=== PATIENT | male | born 1955 | race Caucasian/White ===

== ENCOUNTER → 2017-09-21 | Outpatient (CLI) | payer MEDICARE, OTHER ==
[~2017-09-21] MED LIST: AMOX-362 PO; ATOR20TA65 PO; CYCL10TA29 PO; GABA-549 PO; GOLYTE PO; HYDR-317 PO; HYOS0.1225 PO; LACT1CAP13 PO; LISI-353 PO; LISI-362 PO; LISI2.5T60 PO; LISI20TA29 PO; METF-410 PO; ORP100 PO; OXYC-373 PO; PRED20TA6 PO; TAMS0.4C70 PO; TRAM-420 PO; [UNRECOGNIZED DRUG - CODE] TP
--- NOTE | 2017-09-21 15:52 | EKG ---
[place] [facility] [place] JONA GARZA : [id number] MR: [id number] V: [id number] EXAM DATE: ORDERING PHYSICIAN: KRYSTEN MARTINES TECHNOLOGIST: ALVA Test Reason : CHEST TIGHTNESS Blood Pressure : / mmHG Vent. Rate : 074 BPM Atrial Rate : 074 BPM P-R Int : 150 ms QRS Dur : 112 ms QT Int : 380 ms P-R-T Axes : 045 -65 -24 degrees QTc Int : 421 ms Normal sinus rhythm Left anterior fascicular block Nonspecific ST and T wave abnormality Abnormal ECG Referred By: DELL BERGMAN Confirmed By:
== END ==
LOC: LAB 09:52
PROVIDERS: ATTEND Nurse Practitioner Family
DX: I44.4 Left anterior fascicular block (principal); R94.31 Abnormal electrocardiogram [ECG] [EKG]; R10.13 Epigastric pain
CPT/HCPCS: 36415; 84484; 93005

== ENCOUNTER 2017-10-31 13:00 | Outpatient (RCR) | payer MEDICARE, OTHER ==
--- NOTE | 2017-08-08 16:43 | PT INITIAL EVALUATION ---
MEDICAL DIAGNOSIS: L knee TKA TREATMENT DIAGNOSIS: same, altered gait DATE OF ONSET: 07/25/17 SUBJECTIVE: Jose Vences presents to physical therapy status post L TKA on June. He reports that the mague were removed a few days ago. He denies any chills, fever, increased redness, or any symptoms relating to infection. He states that he has been using heat and states that it feels better than ice at this point. He states that he has been performing heel slides, quad sets, SLR, and hip abduction. He rates the pain to be 5-6/10 with normal daily functions. He rates the pain to be 7/10 with walking and up/ down stairs. Pain location is L knee joints surrounding joint lines, posterior capsule and described as achy. REHAB PROBLEM LIST: Increased Pain Decreased ROM Decreased Strength Decreased Endurance Decreased Balance Decreased Function Decreased ADL's Decreased Mobility Decreased Gait PREVIOUS MEDICAL HISTORY: See EMR OCCUPATION: Retired OBJECTIVE: ROM: L knee PROM: 5-0-90 degrees. L knee AROM: 10-0-90 degrees. Strength: 10 degrees of L knee quad lag Palpation: TTP: L knee joint lines and posterior capsule. Special Tests: FOTO KNEE: 60% impairment, patellar mobility: moderate restriction superiorly and inferiorly. minimal restriction medially and laterally. Mobility: Modified independent Gait: With AD, he demonstrated the following gait mechanics: decreased R step length, increased base of support, decreased velocity, no LOB, and decreased single stance. ASSESSMENT: He will benefit from skilled physical therapy addressing the listed impairments to improve function and QOL. Short Term Goals 3 weeks: Pt will improve AROM of L knee extension and flexion from baseline to 0-125 degrees to improve function and QOL. 3 weeks: Pt will improve quadricep lag from baseline to 0 degrees to improve function and QOL. 6 weeks: Pt will improve gait mechanics from baseline to normal gait mechanics to improve function and QOL. Patient's Goals improve walking, decrease pain, and return to normal daily functions PLAN: Patient to be seen for Manual Therapy/STM/MET Strengthening/condition Ice/Heat Range of Motion Spinal Stabilization Work Hardening/Cond Stretching Neuromuscular Re-ed Closed Chain Program Electrical Stim Gait Trg/Balance Trg Home Exercise Program Therapeutic Activities 3x/Week for 6 Weeks If you have any questions, comments, or concerns about this report or plan, please contact me at . Thank you, Rodrigo Mclean, PT, DPT MTDD
--- NOTE | 2017-09-07 13:19 | PT PLAN OF CARE ---
Physician: Ang Arredondo MD Patient is being seen: 2-3x/week Therapist: Rodrigo Mclean, PT, DPT Medical Diagnosis: L knee TKA Treatment Diagnosis: same, altered gait Date of Onset: 07/25/17 Date of Initial Evaluation: 08/07/17 Date patient was last seen: 09/06/17 Number of treatments: 10 Number of cancellations/No shows: 1 INTERVENTIONS: Manual Therapy/STM/MET Strengthening/condition Ice/Heat Range of Motion Spinal Stabilization Work Hardening/Cond Stretching Neuromuscular Re-ed Closed Chain Program Electrical Stim Gait Trg/Balance Trg Home Exercise Program Therapeutic Activities GOALS: 3 weeks: Pt will improve AROM of L knee extension and flexion from baseline to 0-125 degrees to improve function and QOL. MET 3 weeks: Pt will improve quadricep lag from baseline to 0 degrees to improve function and QOL. MET 6 weeks: Pt will improve gait mechanics from baseline to normal gait mechanics to improve function and QOL. Improving PATIENT'S GOAL: improve walking, decrease pain, and return to normal daily functions: progressing Status of Patient's Goals: Progressing well Patient Compliance: Good Prognosis: Excellent Reasons for continuing therapy: This is a progress note for Jose Vences. He reports that he is doing well. He states that he continues to perform his HEP without any difficult. He states that he no longer has pain and states that it feels more like stiffness. He states that he continues to have swelling around the IT band. He states that he feels like he is recovering well. He is progressing well with the following improvements: maintaining -3-0-130 degrees, increased quad contraction, improved gait mechanics, decreased swelling (however , he continues to have minimal swelling around ITB insertion), improved accessory patella mobility, and improved accessory incisional mobility. We will continue to maintain AROM, improve B LE/core strength, decrease swelling, and return to prior level of function. Posture: ROM: L knee PROM: -3-0-130 degrees. L knee AROM: -1-0-130 degrees. Strength: 0 degrees of L knee quad lag Palpation: TTP: L knee joint lines and posterior capsule. Special Tests: FOTO KNEE: 30% impairment, patellar mobility: minimal restriction superiorly and inferiorly. no restriction medially and laterally. Mobility: Independent If you have questions, please contact me at [phone]. Thank you, Rodrigo Mclean, PT, DPT MTDD
--- NOTE | 2017-10-24 16:05 | PT PLAN OF CARE ---
Physician: Ang Arredondo MD Patient is being seen: 2x/week Therapist: Rodrigo Mclean, PT, DPT Medical Diagnosis: L knee TKA Treatment Diagnosis: same, altered gait Date of Onset: 07/25/17 Date of Initial Evaluation: 08/07/17 Date patient was last seen: 10/24/17 Number of treatments: 20 Number of cancellations/No shows: 2 INTERVENTIONS: Manual Therapy/STM/MET Strengthening/condition Ice/Heat Range of Motion Spinal Stabilization Work Hardening/Cond Stretching Neuromuscular Re-ed Closed Chain Program Electrical Stim Gait Trg/Balance Trg Home Exercise Program Therapeutic Activities GOALS: 3 weeks: Pt will improve AROM of L knee extension and flexion from baseline to 0-125 degrees to improve function and QOL. MET 3 weeks: Pt will improve quadricep lag from baseline to 0 degrees to improve function and QOL. MET 6 weeks: Pt will improve gait mechanics from baseline to normal gait mechanics to improve function and QOL. MET 8 weeks: Pt will improve B LE strength from baseline to greater than 4+/5 to improve function and QOL. Progressing well. PATIENT'S GOAL: improve walking, decrease pain, and return to normal daily functions: progressing Status of Patient's Goals: Progressing well Patient Compliance: Good Prognosis: Excellent Reasons for continuing therapy: This is a progress note for Jose Vences. Pt reports no pain at rest but that the IT band is occasionally flared up. Pt quad strength is about 70% of the contralateral limb. Pt greatest deficit is eccentric control with lowering down stairs or walking downhill from his house. We will continue to work on his eccentric control with lowering and return him to prior level of function. ROM: L knee PROM: -3-0-130 degrees. L knee AROM: -1-0-130 degrees. Strength: 0 degrees of L knee quad lag Palpation: TTP: L knee joint lines and posterior capsule. Special Tests: FOTO KNEE: 6% impairment, patellar mobility:NIL superiorly and inferiorly. NIL medially or laterally. Mobility: Independent If you have questions, please contact me at [phone]. Thank you, Rodrigo Mclean, PT, DPT [facility]
[~2017-10-31 13:00] MED LIST changes: +AMLO-96 PO
--- NOTE | 2017-11-02 15:20 | PT PLAN OF CARE ---
Physician: Ang Arredondo MD Patient is being seen: 2x/week Therapist: Rodrigo Mclean, PT, DPT Medical Diagnosis: L knee TKA Treatment Diagnosis: same, altered gait Date of Onset: 07/25/17 Date of Initial Evaluation: 08/07/17 Date patient was last seen: 11/02/17 Number of treatments: 23 Number of cancellations: 2 INTERVENTIONS: Manual Therapy/STM/MET Strengthening/condition Ice/Heat Range of Motion Spinal Stabilization Work Hardening/Cond Stretching Neuromuscular Re-ed Closed Chain Program Electrical Stim Gait Trg/Balance Trg Home Exercise Program Therapeutic Activities GOALS: 3 weeks: Pt will improve AROM of L knee extension and flexion from baseline to 0-125 degrees to improve function and QOL. MET 3 weeks: Pt will improve quadricep lag from baseline to 0 degrees to improve function and QOL. MET 6 weeks: Pt will improve gait mechanics from baseline to normal gait mechanics to improve function and QOL. MET 8 weeks: Pt will improve B LE strength from baseline to greater than 4+/5 to improve function and QOL. MET PATIENT'S GOAL: improve walking, decrease pain, and return to normal daily functions: Progressing well Status of Patient's Goals: Progressing well Patient Compliance: Good Prognosis: Excellent Reasons for continuing therapy: This is a discharge note for Jose Vences. He reports that he is doing well. He denies any L knee pain. He states that he has some swelling around IT band insertion, but denies any pain even with palpation. He reports that he is performing his home exercise program without any difficulties. He has progressed well within PT while achieving the following improvements: normal accessory mobility of patella (inferior, superior , medial, and lateral), maintained AROM of L knee extension to flexion (0-125 degrees), increased quadricep strength, increased core and L LE strength, improved gait mechanics, and independent on his home exercise program. Furthermore, he continues to struggle with eccentric quad motions, however, with his home exercise program, it will continue to improve and he will be able to reach his full potential. He has met all of his goals. As a result, he will be discharged from formal PT to [facility]. ROM: L knee PROM: -3-0-130 degrees. L knee AROM: -2-0-125 degrees. Strength: 0 degrees of L knee quad lag Palpation: TTP: L knee joint lines and posterior capsule. Special Tests: FOTO KNEE: 6% impairment, patellar mobility:NIL superiorly and inferiorly. NIL medially or laterally. Mobility: Independent If you have questions, please contact me at [phone]. Thank you, Rodrigo Mclean, PT, DPT <Electronically signed by RODRIGO MCLEAN> D/ 1605 MTDD
[2017-11-02] MEDS ORDERED: AMLO-96 PO (16:41)
== END 2017-10-31 18:00 | disposition home or self-care (01) ==
LOC: PT 13:00
PROVIDERS: ATTEND Orthopaedic Surgery
DX: Z47.1 Aftercare following joint replacement surgery (principal); Z96.652 Presence of left artificial knee joint
CPT/HCPCS: 97010; 97110; 97140; 97161; G0283

== ENCOUNTER → 2018-04-05 | Outpatient (CLI) | payer MEDICARE, OTHER ==
[~2018-04-05] MED LIST changes: -METF-410 PO; +METF-411 PO
[2018-04-05 10:05] LABS: PLATELET COUNT, AUTOMATED 216 K/uL (150-450)
[2018-04-05 10:22] LABS: LDL CHOLESTEROL 76 mg/dl
== END ==
LOC: LAB 09:43
PROVIDERS: ATTEND Nurse Practitioner Family
DX: Z12.5 Encounter for screening for malignant neoplasm of prostate (principal); G62.9 Polyneuropathy, unspecified; E11.42 Type 2 diabetes mellitus with diabetic polyneuropathy; I10 Essential (primary) hypertension
CPT/HCPCS: 36415; 83036; 85025; G0103; 82040; 82247; 82310; 82374; 82435; 82465; 82565; 82947; 83718; 84075; 84132; 84153; 84155; 84295; 84450; 84460; 84478; 84520

== ENCOUNTER → 2018-05-14 | Outpatient (CLI) | payer MEDICARE, OTHER ==
[~2018-05-14] MED LIST changes: +PNEI IM
--- NOTE | 2018-05-14 11:00 | RADIOLOGY IMAGING REPORT ---
[facility] PATIENT NAME: Jose Vences : 1955 MR: [id number] V: [id number] EXAM DATE: ORDERING PHYSICIAN: GABRIELLA LUNDBERG TECHNOLOGIST: Location: [facility] [place] Patient: Jose Vences : 1955 Visit/Account:[id number] Date of Sevice: 05/14/2018 PELVIS W/O CONTRAST Provided history: R groin bulge, History of hernia repair x15 years ago Additional pertinent history: none TECHNIQUE: Spiral scan was obtained from the lower abdomen through the ischial tuberosities without i ntravenous contrast. Additional series performed today:none One of the following dose optimization techniques was utilized in the performance of this exam: Autom ated exposure control; adjustment of the mA and/or kV according to the patient's size; or use of an i terative reconstruction technique. Specific details can be referenced in the facility's radiology CT exam operational policy. COMPARISON STUDIES: Previous MRI lumbar spine 09/01/14 is off-line. Report only available. Previous p elvic ultrasound 04/01/14 is off-line. Report only available. FINDINGS: Genitourinary: Previous TURP defect noted. Mild diffuse bladder wall thickening. Small superior bladder dome diverticulum probably urate: Origin . No definable soft tissue mass. No filling defects in the bladder. Bowel/peritoneum/mesenteries: Negative Vessels: negative Body wall: Negative. No recurrent hernia evident. 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 Lower lumbar fusion noted. N o lytic or blastic bone lesion. Benign subcortical cyst upper left femoral neck. IMPRESSION: Chronic and postsurgical changes are defined above. No evidence of body wall hernia. Report Dictated By: Ang Crabtree MD at 05/14/2018 10:50 AM Report E-Signed By: Ang Crabtree MD at 05/14/2018 10:55 AM WSN:[id number]
== END ==
LOC: RAD 09:47
PROVIDERS: ATTEND Surgery
DX: Q76.49 Other congenital malformations of spine, not associated with scoliosis (principal); Z98.890 Other specified postprocedural states
CPT/HCPCS: 72192

== ENCOUNTER 2018-07-19 01:23 | Day surgery (SDC) | payer MEDICARE, OTHER ==
[~2018-07-19] VITALS: Ht 177.8 cm; Wt 91.6 kg
[~2018-07-19 01:23] MED LIST changes: +AMLO-111 PO; -AMLO-96 PO; +ASPI-757 PO; -METF-411 PO; +METF-450 PO
[2018-07-19] MEDS ORDERED: NORMOSOL R SOLN(*) 1000 ML BAG 1,000 ML IV PRN (06:45)
[2018-07-19] MEDS ORDERED: LIDOCAINE/SOD BICARB 8.4% SYR ID ONE (06:45)
[2018-07-19] MEDS ORDERED: ceFAZolin(*) 2GM/D5W 50ML 50 ML IVPB ONE (06:45)
[2018-07-19] MEDS ORDERED: FAMOTIDINE 20 MG TAB PO ONE (06:45)
[2018-07-19] MEDS ORDERED: MIDAZOLAM 2 MG/2 ML VIAL IVP PRN (06:45)
[2018-07-19 07:01] VITALS: BP 121/84
[2018-07-19] MEDS ORDERED: fentaNYL CITR 250 MCG/5 ML AMP ONE (07:05)
[2018-07-19] MEDS ORDERED: DEXAMETHASONE SOD 4 MG/ML VIAL ONE (07:06)
[2018-07-19] MEDS ORDERED: ONDANSETRON 4 MG/2 ML VIAL ONE (07:06)
[2018-07-19] MEDS ORDERED: LIDOCAINE MPF 1% 5 ML VIAL ONE (07:06)
[2018-07-19] MEDS ORDERED: PROPOFOL EMUL(*) 10MG/ML 20 ML 20 ML ONE (07:06)
[2018-07-19] MEDS ORDERED: ROPIVACAINE 0.5% 20 ML VIAL ONE (07:07)
[2018-07-19] MEDS ORDERED: KETAMINE HCL 200 MG/20 ML MDV ONE (07:12)
[2018-07-19] MEDS ORDERED: KETOROLAC 30 MG/ML VIAL ONE (07:54)
[2018-07-19] MEDS ORDERED: OXYC-373 PO (08:28)
[2018-07-19] MEDS ORDERED: DOCU-416 PO (08:28)
--- NOTE | 2018-07-19 08:34 | Short(Outpt) Discharge Summary ---
Discharge Summary Reason for Hosp/Final Diag: (1) Right groin mass Status: Chronic Hospital Course & Plan: Right groin lipoma removed without problems. Pt tolerated the procedure without issues. Departure Discharge to: Home, Self Care Discharge Instructions Home Meds Active Scripts Docusate Sodium (COLACE) 100 Mg Capsule, 1 CAP PO BID, #30 CAP 0 Refills TAKE WITH A FULL GLASS OF WATER Prov:GABRIELLA LUNDBEGR MD 07/19/18 Oxycodone Hcl/Acetaminophen (OXYCODONE-ACETAMINOPHEN 5-325) 1 Each Tablet, 1 TAB PO Q6H PRN for PAIN, #30 TAB 0 Refills Prov:GABRIELLA LUNDBERG MD 07/19/18 Lisinopril (LISINOPRIL) 20 Mg Tablet, 1 TAB PO QDAY, #90 TAB 2 Refills Prov:DELL CORTES APRN-C 06/26/18 Tramadol Hcl (TRAMADOL HCL) 50 Mg Tablet, 1 TAB PO Q6H PRN for PAIN, #360 TAB 1 Refill Prov:DELL CORTES APRN-C 05/07/18 Amlodipine Besylate (AMLODIPINE BESYLATE) 5 Mg Tablet, 1 TAB PO DAILY, #90 TAB 2 Refills Prov:DELL CORTES APRN-C 11/02/17 Orphenadrine Citrate (ORPHENADRINE CITRATE) 100 Mg Tabsr, 1 TAB PO DAILY PRN for MUSCLE SPASMS, #30 TAB 3 Refills Prov:DELL CORTES APRNP-C 03/20/17 Reported Medications Aspirin (ASPIRIN) 325 Mg Tablet, 1 TAB PO QDAY, TAB 06/15/18 Follow up Referrals: General Surgery - 08/07/18 @ Surgery, General with GABRIELLA LUNDBERG MD You have a follow up appointment scheduled with Dr. Lundberg on 08/07/18, at 3:00pm. Diet: Regular Activity: As Tolerated Special Instructions: You may remove the white surgical dressing on 07/21/18, then you can shower. After showering, leave the incision open to air but leave the steristrip in place until they fall off on their own. Do not immerse the incision for 2 weeks. GABRIELLA LUNDBERG MD Jul 19, 2018 08:34
--- NOTE | 2018-07-19 08:38 | Post Operative Progress Note ---
Post Operative Progress Note Date: Jul 19, 2018 Time: 08:35 Surgeon: Star Dictation number: [id number] Anesthesia: LMA by Dr. Gutiérrez Pre-Op Diagnosis: Painful right groin mass Post-Op Diagnosis: JESSE Findings: C/W benign lipoma Procedure(s): Excision of right groin mass Specimen Removed:(May be N/A): Right groin mass Complications: None Fluids: See anesthesia record Estimated Blood Loss: Minimal Date OP Note Dictated: Jul 19, 2018 Time OP Note Dictated: 08:36 GABRIELLA LUNDBERG MD Jul 19, 2018 08:38
[2018-07-19 09:14] VITALS: BP 118/78
[2018-07-19 09:30] VITALS: BP 126/87
[2018-07-19 10:08] VITALS: BP 127/85
[2018-07-19 10:10] VITALS: BP 124/82
--- NOTE | 2018-07-19 12:00 | OPERATIVE REPORT 1 ---
EVENT DATE: July 19, 2018 SURGEON: Titi Graves M.D. ANESTHESIOLOGIST: Rodrigo Gutiérrez MD ANESTHESIA: LMA PREOPERATIVE DIAGNOSIS Painful right groin mass. POSTOPERATIVE DIAGNOSIS Painful right groin mass. PROCEDURE PERFORMED Excision of right groin mass. COMPLICATIONS None. CONDITION Stable. ESTIMATED BLOOD LOSS Minimal. FINDINGS This is consistent with a benign lipoma. SPECIMEN Right groin mass. INDICATIONS This is a 62-year-old gentleman who presented to my office with a lump in his right groin that was causing him pain. He was requesting to have it removed. DESCRIPTION OF PROCEDURE The patient was brought to the operating room and placed supine on the operating table. LMA anesthesia was administered and his right groin was prepped and draped in sterile fashion. Time-out was completed and I marked the skin over the palpable mass and then injected the skin with 0.5% ropivacaine plain. I made an incision right over the mass and dissected through the dermis and subcutaneous fat. I immediately identified the mass, which was a fatty tumor, and dissected completely around it and it, fortunately, was well from the surrounding tissues. I then used mostly blunt and electrocautery dissection to get it freed up from the surrounding tissues and then removed it from the field. The wound was made hemostatic with electrocautery and then irrigated and dried and closed with interrupted 3-0 Vicryl deep dermal sutures and 4-0 Monocryl running subcuticular sutures. Skin was cleaned and dried and steri- strips applied followed by sterile surgical dressings. The patient was awakened and LMA removed and transferred to the recovery room in stable condition, having tolerated the procedure without any apparent problems. MELISA
== END 2018-07-19 09:10 | disposition home or self-care (01) ==
LOC: OR 01:23
PROVIDERS: ATTEND Surgery
DX: R22.41 Localized swelling, mass and lump, right lower limb (principal)
CPT/HCPCS: 27337; 88305; A9270; J1100; J1885; J2001; J2250; J2405; J2704; J2795; J3010; J3490; J0690

== ENCOUNTER → 2018-11-02 | Outpatient (CLI) | payer MEDICARE, OTHER ==
[~2018-11-02] MED LIST changes: -AMLO-111 PO; +AMLO-125 PO; +DOCU-416 PO; +[UNRECOGNIZED DRUG - OTHER]
== END ==
LOC: LAB 11:51
PROVIDERS: ATTEND Nurse Practitioner Family
DX: E11.9 Type 2 diabetes mellitus without complications (principal); I10 Essential (primary) hypertension
CPT/HCPCS: 36415; 82040; 82247; 82310; 82374; 82435; 82565; 82947; 83036; 84075; 84132; 84155; 84295; 84450; 84460; 84520